=== PATIENT | female | born 1945 | race Caucasian/White ===

== ENCOUNTER → 2023-01-30 08:44 | Outpatient (CLI) | payer OTHER, SELFPAY ==
--- NOTE | ~2023-01-30 | XR_ITS ---
EXAMINATION: XR mandible min 4V DATE: 01/30/2023 09:48 INDICATION: Tooth infection and pain. TECHNIQUE: 4 views of the mandible were obtained. COMPARISON: None. FINDINGS: Bone alignment is normal. No fracture. The temporomandibular joints are normal. There are m ultiple restorations of the teeth. IMPRESSION: 1. No fracture. Reviewed, dictated and finalized at location E. L FABRICATOR APPRENTICE IMPRESSION: 1. No fracture.
== END ==
PROVIDERS: PCP Family Medicine; Visit Provider Family Medicine
DX: K08.89 Other specified disorders of teeth and supporting structures (principal)
CPT/HCPCS: 70110